=== PATIENT | female | born 1940 | race Caucasian/White ===

== ENCOUNTER → 2016-11-05 | Outpatient (CLI) | payer MEDICARE ==
[~2016-11-05] MED LIST: ALPR1TAB3 PO; ASPI325T4 PO; FLUT27.53; GABA-113 PO; LEVO75TA5 PO; LISI10TA PO; MULT-506 PO; PRLSR20 PO; SIMV10TA2 PO; TRAZ50TA35 PO
--- NOTE | 2016-11-05 15:12 | DIAGNOSTIC IMAGING REPORT ---
LEFT INJ MAJOR JNT SHLDR,HIP,KNEE CLINICAL HISTORY: 76 years-old Female presenting with L HIP PAIN. COMPARISON: None. PROCEDURE: The risks, benefits, and alternatives to the procedure were discussed with the patient. Written informed consent was obtained. The patient was placed supine on the fluoroscopy table, and a left hip injection was performed under fluoroscopic guidance. The area was prepped and draped in the usual sterile fashion. The skin and soft tissues anesthetized with local 1% lidocaine. The left hip joint was accessed utilizing a 22-gauge needle, and approximately 1 cc of Optiray 300 was injected into the joint space under fluoroscopic guidance to confirm intra-articular placement. Subsequently, a mixture of 2 mL of Celestone and 5 mL of 0.5% Marcaine was injected into the joint. The procedure was well tolerated and without immediate complication. The patient was then transferred to MRI for MR arthrography. Fluoroscopy dosage (mGy): Not available. Fluoroscopy time: 12 seconds. Number of fluoroscopic spot images: 0. IMPRESSION: Successful therapeutic injection of the left hip under fluoroscopic guidance. Electronically signed by: Braulio Valera M.D. 11/05/2016 3:10 PM Dictated Date/Time: 11/05/2016 3:08 PM
== END | disposition home or self-care (01) ==
LOC: C.RADBC 13:28
PROVIDERS: ATTEND Orthopaedic Surgery
DX: M16.12 Unilateral primary osteoarthritis, left hip (principal)

== ENCOUNTER 2017-02-28 05:19 | Inpatient (IN) | payer MEDICARE, OTHER ==
[2017-01-20 13:08] VITALS: BMI 33.0
--- NOTE | 2017-01-20 14:03 | PAT Medication Instructions ---
Service Date Jan 20, 2017. Current Home Medication List Alprazolam (Xanax), 1 MG PO TID PRN for prn Aspirin (Aspirin), 650 MG PO HS Calcium/Vitamin D (Os-James 500 Plus D), 1 TAB PO QDL Cholecalciferol (Vitamin D3), 1 TAB PO QDL Fluticasone Furoate (Flonase Sensimist), prn Gabapentin (Neurontin), 300 MG PO BID Gabapentin (Neurontin), 600 MG PO QPM Levothyroxine Sodium (Levothyroxine Sodium), 1 TAB PO QAM Lisinopril (Prinivil), 10 MG PO QAM Multivitamin (Multivitamin), 1 TAB PO QDL Omeprazole (Prilosec), 40 MG PO QAM Simvastatin (Zocor), 10 MG PO QPM Trazodone Hcl (Trazodone), 50 MG PO HS Medication Instructions For Your Scheduled Surgery - Check with surgeon for instructions: Aspirin (Aspirin), 650 MG PO HS - Hold the following medications the morning of surgery: Calcium/Vitamin D (Os-James 500 Plus D), 1 TAB PO QDL Cholecalciferol (Vitamin D3), 1 TAB PO QDL Lisinopril (Prinivil), 10 MG PO QAM Multivitamin (Multivitamin), 1 TAB PO QDL - Take the following medications the morning of surgery with a sip of water: Omeprazole (Prilosec), 40 MG PO QAM Levothyroxine Sodium (Levothyroxine Sodium), 1 TAB PO QAM Gabapentin (Neurontin), 300 MG PO BID Fluticasone Furoate (Flonase Sensimist), prn (if needed) Alprazolam (Xanax), 1 MG PO TID PRN for prn (if needed) - Take the following medications as scheduled the night before surgery: Simvastatin (Zocor), 10 MG PO QPM Trazodone Hcl (Trazodone), 50 MG PO HS Gabapentin (Neurontin), 300 MG PO BID Gabapentin (Neurontin), 600 MG PO QPM Fluticasone Furoate (Flonase Sensimist), prn (if needed) Alprazolam (Xanax), 1 MG PO TID PRN for prn (if needed) If you have any questions please call us at [phone] or [phone] or [phone]
--- NOTE | 2017-01-20 14:51 | DIAGNOSTIC IMAGING REPORT ---
TWO VIEW CHEST CLINICAL HISTORY: Preoperative examination. FINDINGS: PA and lateral chest radiographs are obtained. No prior studies are available for comparison at the time of dictation. The cardiomediastinal silhouette is unremarkable. Nonspecific interstitial thickening is noted. There is no airspace consolidation or pleural effusion. There is no pneumothorax. The skeletal structures are osteopenic. The bony thorax appears intact. Degenerative change is present throughout the thoracic spine. IMPRESSION: No active disease in the chest. Electronically signed by: Abel Philippe M.D. 01/20/2017 2:50 PM Dictated Date/Time: 01/20/2017 2:49 PM
[2017-01-20 15:09] LABS: BASO % 0.7 %; BASO ABS # 0.05 K/uL (0-0.2); COMPLETE YES; EOS % 4.1 %; HEMATOCRIT 38.6 % (37-47); IG% 0.3 %; LYMPH % 33.6 %; LYMPH ABS # 2.44 K/uL (1.2-3.4); MEAN CELL VOLUME 90.6 fL (80-100); MEAN CORPUSCULAR HEMOGLOBIN 30.3 pg (25-34); MEAN CORPUSCULAR HGB CONC 33.4 g/dl (32-36); MEAN PLATELET VOLUME 10.3 fL (7.4-10.4); MONO % 5.8 %; NEUT % 55.5 %; PLATELET COUNT 252 K/uL (130-400); RED BLOOD COUNT 4.26 M/uL (4.2-5.4); WHITE BLOOD COUNT 7.27 K/uL (4.8-10.8)
[2017-01-20 15:12] LABS: URINE APPEARANCE CLEAR (CLEAR); URINE BILIRUBIN NEG (NEG); URINE COLOR YELLOW; URINE NITRITE NEG (NEG); URINE SPECIFIC GRAVITY 1.011 (1.000-1.030); UROBILINOGEN NEG (NEG)
[2017-01-20 15:17] LABS: MANUAL MICROSCOPIC REQUIRED? NO; REVIEW REQ? NO
[2017-01-20 15:18] LABS: INR 0.9 (0.9-1.1); PARTIAL THROMBOPLASTIN RATIO 1.1; PROTHROMBIN TIME (PATIENT) 10.1 SECONDS (9.0-12.0)
[2017-01-20 16:00] LABS: BUN/CREATININE RATIO 17.1 (10-20); CALCIUM 8.9 mg/dl (8.5-10.1); CREATININE 0.8 mg/dl (0.60-1.20); POTASSIUM 4.6 mmol/L (3.5-5.1)
--- NOTE | 2017-02-27 11:12 | HISTORY & PHYSICAL EXAMINATION ---
DATE OF ADMISSION: 02/28/2017 CHIEF COMPLAINT: Primary osteoarthritis of the left hip. HISTORY OF PRESENT ILLNESS: Eloisa is a pleasant 76-year-old female who has been having a 5-year history of left hip pain. It has gotten progressively worse over the last 5 years. Most of her pain is located in the groin. X-rays and clinical examination have been diagnostic for primary osteoarthritis of the left hip. She has gotten to the point she cannot even lie down at night without having pain. She elected to proceed with a left total hip arthroplasty. PAST MEDICAL HISTORY: Significant for hypothyroidism, depression, hyperlipidemia, and hypertension. PAST SURGICAL HISTORY: Significant for cataract surgery and wrist surgery. ALLERGIES: None. MEDICATIONS: Include Xanax, gabapentin, Synthroid, lisinopril, and Protonix. FAMILY HISTORY: She denies. SOCIAL HISTORY: She is . Rarely drinks. ____ pack of tobacco for unknown amount of years. Does little activity and has 4 kids. REVIEW OF SYSTEMS: She complains of left hip pain. All other pertinent review of systems is negative. PHYSICAL EXAMINATION: GENERAL: She is awake, alert and oriented x3. She is in no apparent distress. She is very pleasant. HEENT: Pupils are equal, round and reactive to light. Extraocular motion intact. Oral mucosa is pink and moist. HEART: Regular rate per radial pulse. LUNGS: Francy symmetrically bilaterally with no audible breath sounds. ABDOMEN: Soft, nontender, and nondistended. MUSCULOSKELETAL: On physical examination of her hip, she ambulates independently, but does have an antalgic gait. She has tenderness over the greater trochanteric bursa, but also has reproducible symptoms with forced internal and external rotation of her hips. She has negative straight leg raise. IMAGING DATA: X-rays of the left hip do show advanced osteoarthritis with osteophyte formation and joint space narrowing. IMPRESSION: Primary osteoarthritis of the left hip. PLAN: We will proceed with a left total hip arthroplasty through an anterior approach. Postoperatively, she will be kept in the hospital for postoperative medical management and started on aspirin for DVT prophylaxis.
[2017-02-28] VITALS (9 sets, daily range): BP systolic 95–147; BP diastolic 57–74; PULSE 66–77; TEMP 36.3–36.9; O2SAT 94–100; Ht 157.5 cm; Wt 81.4 kg
[~2017-02-28] VITALS: Ht 157.5 cm; Wt 81.4 kg
[~2017-02-28 05:19] MED LIST changes: +CALC500C70 PO; +CHOL1000 PO
[2017-02-28] MEDS ORDERED: GABAPENTIN 300 MG CAP PO SCH ×3 (06:00→21:00)
[2017-02-28] MEDS ORDERED: ROPIVACAINE 5MG/ML 30 ML 150 MG, BUPIVACAINE 0.5% MPF INJ 30 ML, EpINEphrine HCL INJ 0.... INFIL SCH ×8 (06:00)
[2017-02-28] MEDS ORDERED: LACTATED RINGER'S 1000ML 1,000 ML IV SCH ×2 (06:00)
[2017-02-28] MEDS ORDERED: ACETAMINOPHEN 500 MG TAB PO SCH ×2 (06:00→10:00)
[2017-02-28] MEDS ORDERED: FAMOTIDINE 20 MG TAB PO SCH (06:00)
[2017-02-28] MEDS ORDERED: LACTATED RINGER'S 1000ML 500 ML IV ONE (06:00)
[2017-02-28] MEDS ORDERED: CEFAZOLIN 2000MG IV PUSH 10 ML IV SCH (06:00)
[2017-02-28] MEDS: TRANEXAMIC ACID INJ 1,000 MG in SYRINGE 0 ML IV SCH ×2 (06:30→07:09)
[2017-02-28] MEDS ORDERED: BUPIVACAINE 0.5 % 5 MG/1 ML PF 10ML VIAL ONE (06:30)
[2017-02-28] MEDS ORDERED: LIDOCAINE HCL 2% 2 ML VIAL (20MG/ML) ONE (06:36)
[2017-02-28] MEDS ORDERED: PROPOFOL IV EMULSION 10 MG/ML 20 ML VIAL IV ONE (06:36)
[2017-02-28] MEDS ORDERED: MIDAZOLAM HCL 1 MG/ML 2ML VIAL ONE (06:37)
[2017-02-28] MEDS ORDERED: FENTANYL CITRATE INJ 50 MCG/1 ML 2 ML VIAL ONE (06:37)
[2017-02-28] MEDS ORDERED: BACITRACIN 50000 UNIT VIAL ONE (06:59)
[2017-02-28] MEDS ORDERED: ORTHO JOINT ANESTHETIC ONE (06:59)
[2017-02-28] MEDS ORDERED: ONDANSETRON INJ 2 MG/ML 2 ML VIAL IV PRN ×2 (07:00→10:00)
[2017-02-28] MEDS ORDERED: FENTANYL CITRATE INJ 50 MCG/1 ML 2 ML VIAL IV PRN (07:00)
[2017-02-28] MEDS ORDERED: ATROPINE SULFATE 0.1 MG/ML 5ML SYR IV PRN (07:00)
[2017-02-28] MEDS ORDERED: EpHEDrine SULFATE INJ 50 MG/ML AMP IV PRN (07:00)
--- NOTE | 2017-02-28 07:03 | History & Physical Bridge Note ---
H&P Re-Evaluation Bridge Note: I have examined the patient, reviewed the History & Physical and in the interval since the performance of the History & Physical I have noted the following changes of clinical significance: No changes noted
[2017-02-28] MEDS ORDERED: PHENYLEPHRINE 100MCG/ML 5ML SYR ONE (08:34)
[2017-02-28] MEDS ORDERED: EpHEDrine SULFATE 50MG/5ML SYR ONE (08:34)
[2017-02-28] MEDS ORDERED: SODIUM CHLORIDE 0.9% 1000ML 1,000 ML IV SCH (09:50)
--- NOTE | 2017-02-28 09:50 | [facility] Post Operative Brief Note ---
Immediate Operative Summary Operative Date Feb 28, 2017. Pre-Operative Diagnosis Left Hip Degenerative Joint Disease Post-Operative Diagnosis Same as preop Procedure(s) Performed Left Anterior Total Hip Arthroplasty Uncemented Surgeon Dr. Haynes Irrigator Gravity Flow Surgeon(s) Yovanny Arreaga PA-C Estimated Blood Loss 200 ml Findings as above Specimens A. Left Femoral Head Complication(s) None Disposition Recovery Room / PACU
[2017-02-28] MEDS ORDERED: ACETAMINOPHEN IV 1,000 MG in EMPTY BAG 0 ML IV SCH (10:00)
[2017-02-28] MEDS ORDERED: MoRPHine SULFATE 2 MG/ML CARP IV PRN ×2 (10:00→12:15)
[2017-02-28] MEDS ORDERED: CEFAZOLIN IV 2,000 MG in DEXTROSE 5% 50ML 50 ML IV SCH ×2 (10:00→12:15)
[2017-02-28] MEDS ORDERED: MAGNESIUM HYDROXIDE SUSP 30 ML UDC PO PRN (10:00)
[2017-02-28] MEDS ORDERED: OXYCODONE HCL IR 5 MG TAB (IMMEDIATE RELEASE) PO PRN ×2 (10:00→12:15)
[2017-02-28] MEDS ORDERED: BISACODYL 10 MG SUPP PR PRN (10:00)
[2017-02-28] MEDS ORDERED: KETOROLAC TROMETHAMINE 30 MG/ML VIAL IV. SCH (10:00)
[2017-02-28] MEDS ORDERED: SOD PHOSPHATE/SOD BIPHOSPHATE ENEMA 132 ML BTL PR PRN (10:00)
[2017-02-28] MEDS ORDERED: METOCLOPRAMIDE HCL INJ 5 MG/ML 2 ML VIAL IV PRN (10:00)
--- NOTE | 2017-02-28 10:21 | OPERATIVE REPORT ---
DATE OF OPERATION: 02/28/2017 PREOPERATIVE DIAGNOSIS: Primary osteoarthritis of the left hip. POSTOPERATIVE DIAGNOSIS: Same. PROCEDURE: Left total hip arthroplasty. SURGEON: Dr. Eleuterio Haynes. OCCUPATIONAL THERAPY AIDES TEACHER: Yovanny Arreaga PA-C, whose assistance was necessary for retraction and closure. ANESTHESIA: Spinal. COMPLICATIONS: None. CONDITION: Stable to PACU. IMPLANTS USED: I used a Biomet Taperloc total hip arthroplasty system with a size 7 high offset stem, a size 50 cup with a 36 E1 poly liner and a 36 ceramic head with a -6 neck. INDICATIONS: Eloisa is a very pleasant 76-year-old female who presented to my office with chronic left hip and groin pain. X-rays and clinical examination were diagnostic for primary osteoarthritis of the left hip. After failing conservative treatment, she elected to undergo a left total hip arthroplasty. DESCRIPTION OF PROCEDURE: On 02/28/2017, she arrived at [facility] for the above procedure. She was seen in the preoperative holding area and the operative extremity was identified and signed. She received antibiotics and a spinal anesthetic. She was taken back to the operating room, laid on the table in supine position and given basic sedation. The left leg was then brought out to a Purist leg positioner. The left hip was then prepped and draped in sterile fashion. Time-out was done and the patient's operative extremity was properly identified. An anterior approach was used. Dissection was taken down through the fascia and the tensor muscle was retracted laterally and the rectus was retracted medially. The circumflex vessels were visualized and ligated. The capsule was exposed. The capsule was then incised and tagged for later repair. The femoral neck was then resected and the head was removed. Time was spent doing a circumferential labral release. Sequential reaming of the acetabulum up to a size 49 reamer was done. Version of the acetabulum was checked under fluoroscopy. Once I had good circumferential bleeding bone, a size 50 cup was then impacted into place. Appropriate position was checked under fluoroscopy. A single 30-mm screw was placed and E1 poly liner was snapped into place and the ring lock mechanism was engaged. The proximal femur was then exposed. Sequential broaching up to a size 7 broach was done. A high offset neck with a standard head was used for reduction. I was happy with the size of the implant. I thought that the leg was a little bit long. It was then dislocated. A final size 7 high offset Taperloc stem was then impacted into place. I trialed a -6 implant and I was happy with the leg length. A final 36 ceramic head with a -6 neck was then impacted into place and the hip was then reduced. Final fluoroscopic images showed anatomic reduction. The surrounding soft tissues were then injected with 100 mL of an orthopedic pain control cocktail. The wound was then irrigated with 3 liters of normal saline solution with bacitracin. The capsule was closed with #1 Vicryl suture. Drain was placed. The fascia was then closed with #1 PDS. Skin was closed with a couple of deep sutures, a 2-0 Vicryl suture, a 3-0 V-Loc and karen. A Prevena VAC dressing was placed. She was then taken to the postanesthesia care unit in stable condition. She tolerated the procedure well. I attest to the content of the Intraoperative Record and any orders documented therein. Any exception s are noted below.
--- NOTE | 2017-02-28 10:40 | DIAGNOSTIC IMAGING REPORT ---
SINGLE VIEW PELVIS; SINGLE VIEW LEFT HIP CLINICAL HISTORY: Postoperative examination. Left hip arthroplasty. FINDINGS: An AP portable view of the hips and pelvis with a crosstable lateral portable view of the left hip are obtained. A bipolar left hip arthroplasty is in near-anatomic alignment. A single cortical lag screw transfixes the acetabular cup. No acute fracture is identified. There are expected postoperative changes overlying the left hip including skin clips, subcutaneous gas, a surgical drain, and soft tissue swelling. IMPRESSION: Expected postoperative findings status post left hip arthroplasty. No acute fracture is seen. Electronically signed by: Abel Philippe M.D. 02/28/2017 10:39 AM Dictated Date/Time: 02/28/2017 10:38 AM
[2017-02-28] MEDS ORDERED: CALCIUM 600MG + VIT D 400 IU TAB PO SCH (11:00)
[2017-02-28] MEDS ORDERED: CHOLECALCIFEROL 1000 INTER.UNIT TAB PO SCH (11:00)
--- NOTE | 2017-02-28 11:17 | Anesthesiology Progress Note ---
Anesthesia Post Op Note Date & Time Feb 28, 2017 at 11:17 Vital Signs Pain Intensity: 0 Vital Signs Past 12 Hours Date Time Temp Pulse Resp B/P (MAP) Pulse Ox O2 Delivery O2 Flow Rate FiO2 02/28/17 11:10 63 12 102/47 99 Nasal Cannula 2 02/28/17 11:00 36.3 71 20 106/40 96 Nasal Cannula 2 02/28/17 10:50 68 16 106/52 99 Nasal Cannula 2 02/28/17 10:40 70 17 94/44 97 Nasal Cannula 2 02/28/17 10:30 73 17 88/54 98 Oxymask 10 02/28/17 10:20 72 15 90/53 99 Oxymask 10 02/28/17 10:12 36.4 80 13 94/47 99 Oxymask 10 02/28/17 06:39 36.7 77 18 147/74 98 Room Air Notes Mental Status: alert / awake / arousable, participated in evaluation Pt Amnestic to Procedure: Yes Nausea / Vomiting: adequately controlled Pain: adequately controlled Airway Patency, RR, SpO2: stable & adequate BP & HR: stable & adequate Hydration State: stable & adequate Neuraxial Anesthesia: was administered, sensory block is resolving Anesthetic Complications: no major complications apparent
[2017-02-28] MEDS: SODIUM CHLORIDE 0.9% 1000ML 1,000 ML IV SCH ×2 (12:52→23:24)
[2017-02-28] MEDS: ALPRAZOLAM 0.5 MG TAB PO PRN ×2 (13:36→21:59)
[2017-02-28] MEDS: KETOROLAC TROMETHAMINE 30 MG/ML VIAL IV. SCH ×3 (13:37→23:25)
[2017-02-28] MEDS: CALCIUM 600MG + VIT D 400 IU TAB PO SCH (13:44)
[2017-02-28] MEDS: CHOLECALCIFEROL 1000 INTER.UNIT TAB PO SCH (13:44)
[2017-02-28] MEDS: ACETAMINOPHEN IV 1,000 MG in EMPTY BAG 0 ML IV SCH ×2 (13:47→21:59)
--- NOTE | 2017-02-28 13:48 | DIAGNOSTIC IMAGING REPORT ---
L HIP UNILATERAL 1 VIEW CLINICAL HISTORY: LEFT ANTERIOR HIP COMPARISON: None. DISCUSSION: Image intensifier was used for an anterior approach left hip total arthroplasty. Expected soft tissue postoperative change IMPRESSION: Image intensifier utilized for an anterior approach left hip total arthroplasty The above report was generated using voice recognition software. It may contain grammatical, syntax or spelling errors. Electronically signed by: Yvan Alvarez M.D. 02/28/2017 1:47 PM Dictated Date/Time: 02/28/2017 1:46 PM
[2017-02-28] MEDS: CEFAZOLIN IV 2,000 MG in SYRINGE 0 ML IV SCH ×2 (15:30→23:24)
--- NOTE | 2017-02-28 16:48 | Discharge Instructions ---
Discharge Instructions Date of Service Feb 28, 2017. Admission Reason for Admission: Left Hip Degenerative Joint Disease Discharge Discharge Diagnosis / Problem: Left Total Hip Discharge Goals Goal(s): Decrease discomfort, Improve function Activity Recommendations Activity Limitations: as noted below . Instructions / Follow-Up Instructions / Follow-Up Activity and Therapy Recommendations: * If you are using [facility] then Physical Therapy will be provided until they feel you are ready to start Outpatient Physical Therapy. If you are not using a Home Health agency then Outpatient Physical Therapy should start about 3-5 days from your day of surgery. Therapy will last about 3-6 weeks * You were shown a series of exercises in the hospital. Do these exercises three times each day including the exercises you were shown in physical therapy. * Get up and walk several times each day.~ For the first four weeks, try not to stand or walk for more than one hour at a time. If you do stand or walk for more than one hour, you will not hurt anything, but your leg will likely swell.~ ~ * As you feel comfortable, you may change from the walker or crutches to a cane and~then to independent walking. Medications: * Narcotic You will likely be sent home from the hospital with a prescription for the narcotic pain medication that worked best throughout your stay. * Aspirin Most patients will be required to take Aspirin 325mg twice a day for 6 weeks after surgery. This is obtained [id number] and a prescription is not necessary. * Other medications may be prescribed for specific circumstances. If you have any questions, please call the office at . * Resume previous home medications unless otherwise instructed TEDs/Elastic Stockings: The white elastic stockings help limit swelling and prevent blood clots from forming in your legs. The more you wear them, the more they work. Wear them for six weeks. Dressing Care: Take the VAC dressing off if it is still on at 10 days (hopefully it will last 7 -10 days). You may shower after the VAC dressing is off. Let soapy water run over the karen and pat it dry. Things To Watch For: * Drainage from the incision site that occurs more than one week after your surgery. * Increased redness at the incision site. * Fever above 102 degrees Fahrenheit. * Unusual chest pain or shortness of breath. * Call [facility] at with any of the above problems Follow-Up Visit: Follow-up with Dr. Haynes 2-3 weeks after your day of surgery. An appointment was probably scheduled when you signed-up for surgery in the office. If you have any questions call Office Instructions: More detailed instructions as well as Frequently Asked Questions were provided in a folder by our office when you signed-up for surgery. Please review these instructions when you get home. If you have any further questions or concerns, please feel free to call the office at [phone] Current Hospital Diet Patient's current hospital diet: Regular Diet Discharge Diet Recommended Diet: Regular Diet Procedures Procedures Performed: Left Anterior Total Hip Arthroplasty Uncemented Pending Studies Studies pending at discharge: no Medical Emergencies . Who to Call and When: Medical Emergencies: If at any time you feel your situation is an emergency, please call 911 immediately. . Non-Emergent Contact Non-Emergency issues call your: Surgeon Call Non-Emergent contact if: wound has increased drainage, wound has increased redness . "Provider Documentation" section prepared by Eleuterio Haynes. . VTE Core Measure Inpt VTE Proph given/why not?: Other Anticoagulation (Aspirin 325 twice a day for 6 weeks)
[2017-02-28] MEDS: SIMVASTATIN 10 MG TAB PO SCH (20:36)
[2017-02-28] MEDS: DOCUSATE SODIUM 100 MG CAP PO SCH (20:36)
[2017-02-28] MEDS: GABAPENTIN 300 MG CAP PO SCH ×2 (20:42→20:44)
[2017-02-28] MEDS: ASPIRIN 325 MG ECTAB PO SCH (20:42)
[2017-02-28] MEDS ORDERED: SENNA 8.6 MG TAB PO SCH (21:00)
[2017-02-28] MEDS ORDERED: ASPIRIN 325 MG ECTAB PO SCH (21:00)
[2017-02-28] MEDS ORDERED: SIMVASTATIN 10 MG TAB PO SCH (21:00)
[2017-02-28] MEDS ORDERED: TRAZODONE HCL 50 MG TAB PO SCH (21:00)
[2017-02-28] MEDS ORDERED: DOCUSATE SODIUM 100 MG CAP PO SCH (21:00)
[2017-02-28] MEDS: TRAZODONE HCL 50 MG TAB PO SCH (21:16)
[2017-02-28] MEDS: SENNA 8.6 MG TAB PO SCH (21:16)
[2017-02-28] MEDS ORDERED: NURSING VERBAL MED ORDER ONE (22:30)
[2017-03-01 03:05] VITALS: BP 129/70; PULSE 80; TEMP 36.9; O2SAT 94
[2017-03-01] MEDS: ACETAMINOPHEN IV 1,000 MG in EMPTY BAG 0 ML IV SCH (06:05)
[2017-03-01] MEDS: LEVOTHYROXINE 75 MCG TAB PO SCH (06:05)
[2017-03-01 06:06] LABS: BASO % 0.1 %; BASO ABS # 0.01 K/uL (0-0.2); COMPLETE YES; EOS % 0.1 %; IG% 0.3 %; LYMPH % 12.2 %; LYMPH ABS # 1.64 K/uL (1.2-3.4); MEAN CELL VOLUME 90.4 fL (80-100); MEAN CORPUSCULAR HEMOGLOBIN 29.4 pg (25-34); MEAN CORPUSCULAR HGB CONC 32.6 g/dl (32-36); MEAN PLATELET VOLUME 10.1 fL (7.4-10.4); MONO % 6.3 %; PLATELET COUNT 186 K/uL (130-400); RED BLOOD COUNT 3.43 M/uL (4.2-5.4); WHITE BLOOD COUNT 13.43 K/uL (4.8-10.8)
[2017-03-01] MEDS: KETOROLAC TROMETHAMINE 30 MG/ML VIAL IV. SCH ×4 (06:08→19:48)
[2017-03-01 06:39] LABS: CALCIUM 8.2 mg/dl (8.5-10.1); CREATININE 0.78 mg/dl (0.60-1.20); POTASSIUM 4.5 mmol/L (3.5-5.1)
--- NOTE | 2017-03-01 07:08 | PROGRESS NOTE ---
DATE: 03/01/2017 CHIEF COMPLAINT: Status post left total hip arthroplasty postop day #1. PROGRESS: Eloisa was seen and examined at bedside today. Overall, she is doing fairly well. She has been up to use the bathroom. She is concerned because she cannot do a straight leg raise. She was able to get some sleep last night, has no other complaints. PHYSICAL EXAMINATION: LEFT HIP: The Prevena VAC dressing is to suction and the drain is to suction. She has active dorsiflexion and plantarflexion of her left ankle. She has full sensation of her quad. I am able to get her to contract her quad but not do a straight leg raise. LABORATORY DATA: She has an H&H today of 10.1 and 30.0. Her glucose is 107. Her vital signs are all stable on room air and she is voiding on her own. Her Hemovac put out 220 mL. X-rays postoperatively of the left hip show the prosthesis to be in anatomic alignment without any evidence of fracture, dislocation or loosening. IMPRESSION: Status post left total hip arthroplasty postop day #1. PLAN: At this point, she is doing well. She is on aspirin 325 mg twice a day for DVT prophylaxis. She will be seen by physical therapy today. I told her sometimes it takes couple of weeks to get the straight leg raised back. Tomorrow morning, the nursing staff can pull the drain and will likely discharge her to home.
[2017-03-01 07:50] VITALS: BP 129/70; PULSE 75; TEMP 36.8; O2SAT 95
[2017-03-01] MEDS: CEFAZOLIN IV 2,000 MG in SYRINGE 0 ML IV SCH (07:54)
[2017-03-01] MEDS: DOCUSATE SODIUM 100 MG CAP PO SCH ×2 (08:58→21:00)
[2017-03-01] MEDS: PANTOprazole SOD 40 MG TAB PO SCH (08:58)
[2017-03-01] MEDS: ASPIRIN 325 MG ECTAB PO SCH ×2 (08:58→21:21)
[2017-03-01] MEDS: GABAPENTIN 300 MG CAP PO SCH ×2 (08:59→21:22)
[2017-03-01] MEDS: MULTIVITAMIN TAB PO SCH (08:59)
[2017-03-01] MEDS ORDERED: PANTOprazole SOD 40 MG TAB PO SCH (09:00)
[2017-03-01] MEDS ORDERED: LEVOTHYROXINE 75 MCG TAB PO SCH (09:00)
[2017-03-01] MEDS ORDERED: LISINOPRIL 10 MG TAB PO SCH (09:00)
[2017-03-01] MEDS ORDERED: MULTIVITAMIN TAB PO SCH (09:00)
[2017-03-01] MEDS: LISINOPRIL 10 MG TAB PO SCH (09:00)
[2017-03-01] MEDS: CHOLECALCIFEROL 1000 INTER.UNIT TAB PO SCH (12:04)
[2017-03-01] MEDS: CALCIUM 600MG + VIT D 400 IU TAB PO SCH (12:04)
[2017-03-01 12:18] VITALS: BP 145/76; PULSE 73; TEMP 36.4; O2SAT 98
[2017-03-01] MEDS: ACETAMINOPHEN 500 MG TAB PO SCH ×2 (14:13→21:23)
[2017-03-01] MEDS: ALPRAZOLAM 0.5 MG TAB PO PRN ×3 (14:14→21:28)
[2017-03-01 15:50] VITALS: BP 107/53; PULSE 72; TEMP 36.7; O2SAT 97
[2017-03-01] MEDS ORDERED: NURSING DECISION MEDICATION ORDER SCH (20:00)
[2017-03-01] MEDS: SENNA 8.6 MG TAB PO SCH (21:00)
[2017-03-01] MEDS: TRAZODONE HCL 50 MG TAB PO SCH (21:21)
[2017-03-01] MEDS: SIMVASTATIN 10 MG TAB PO SCH (21:22)
[2017-03-01 22:55] VITALS: BP 110/55; PULSE 72; TEMP 36.7; O2SAT 94
[2017-03-02] MEDS: KETOROLAC TROMETHAMINE 30 MG/ML VIAL IV. SCH ×2 (02:07→07:52)
[2017-03-02] MEDS: LEVOTHYROXINE 75 MCG TAB PO SCH (05:33)
[2017-03-02] MEDS: ACETAMINOPHEN 500 MG TAB PO SCH (05:34)
[2017-03-02 07:49] VITALS: BP 146/68; PULSE 72; TEMP 36.4; O2SAT 96
[2017-03-02] MEDS: ALPRAZOLAM 0.5 MG TAB PO PRN (07:53)
[2017-03-02] MEDS: MULTIVITAMIN TAB PO SCH (08:52)
[2017-03-02] MEDS: PANTOprazole SOD 40 MG TAB PO SCH (08:52)
[2017-03-02] MEDS: DOCUSATE SODIUM 100 MG CAP PO SCH (08:53)
[2017-03-02] MEDS: ASPIRIN 325 MG ECTAB PO SCH (08:53)
[2017-03-02] MEDS: LISINOPRIL 10 MG TAB PO SCH (08:54)
[2017-03-02] MEDS ORDERED: GABAPENTIN 300 MG CAP PO SCH (09:00)
[2017-03-02] MEDS ORDERED: ULT50X PO (09:21)
[2017-03-02] MEDS ORDERED: ASPEC325 PO (09:21)
--- NOTE | 2017-03-02 09:37 | PROGRESS NOTE ---
DATE: 03/02/2017 CHIEF COMPLAINT: Status post left total hip arthroplasty postop day #2. PROGRESS: Eloisa was seen and examined at bedside today. Overall, she is doing fairly well. She has some soreness in her left hip. She also has some numbness on the lateral aspect. She was up ambulating in the hallways yesterday with physical therapy. Her pain is controlled. She has no other complaints. PHYSICAL EXAMINATION: LEFT HIP: She does have some numbness on the lateral aspect of her thigh and on the anterior aspect. She has full active extension of her left leg and good strength in her quads. She is able to flex her hip, but it is sore and weak. She has active dorsiflexion and plantarflexion of her left ankle. The Prevena VAC dressing is to suction. IMPRESSION: Status post left total hip arthroplasty postop day #2. PLAN: At this point, she is doing fairly well. We will wait for the numbness to subside some. She will have the Prevena VAC dressing on for 7-10 days, we discussed that. Will continue aspirin for DVT prophylaxis and she can be discharged to home later this morning.
[2017-03-02 09:42] VITALS: BP 146/68; PULSE 72; TEMP 36.4; O2SAT 96
--- NOTE | 2017-03-02 09:45 | DISCHARGE SUMMARY ---
DISCHARGE DIAGNOSIS: Primary osteoarthritis of the left hip. PROCEDURE: Left total hip arthroplasty on 02/28/[address] Eleuterio Haynes. DISCHARGE INSTRUCTIONS: 1. Aspirin 325 mg twice a day for 6 weeks. 2. Tramadol 50 mg every 6 hours as needed for pain. 3. Xanax 1 mg 3 times a day as needed. 4. Flonase sprays as needed. 5. Neurontin 300 mg twice a day. 6. Neurontin 600 mg at night. 7. Synthroid 75 mcg in the morning. 8. Prinivil 10 mg daily. 9. Prilosec 40 mg daily. 10. Zocor 10 mg daily. 11. Trazodone 50 mg at night. 12. Continue all other vitamin supplementations. 13. VERNON hose stockings for 6 weeks. 14. Follow up with Dr. Haynes in 2 weeks. 15. Leave Prevena VAC dressing in place for 7-10 days. 16. Call the office of Dr. Haynes with any questions or concerns. HOSPITAL COURSE: Eloisa is a pleasant 76-year-old female who presented to my office with chronic left hip and groin pain. X-rays and clinical examination were diagnostic for primary osteoarthritis of the left hip. After failing conservative treatment, she elected to undergo a left total hip arthroplasty. On 02/28/2017, she arrived at [facility] and underwent a left hip replacement without complications. She had a spinal anesthetic. Postoperatively, Prevena VAC dressing was placed prophylactically and she was started on aspirin 325 mg twice a day and discharged to general orthopedic floor. Her hospital course was uneventful. On postop day #1, her H&H was stable at 10.1 and 31.0. She was able to ambulate well with physical therapy. She had some numbness in the lateral aspect of her leg. On postop day #2, she continued to do fairly well. She had some soreness in the hip, but she was ambulating well. The Prevena VAC dressing was still to suction. The nursing staff had pulled the drain and she was subsequently discharged to home with oral pain medications and the above instructions.
== END 2017-03-02 11:09 | disposition home health service (06) | DRG 470 ==
LOC: C.ACU 05:19 → C.3E 06:30 → ENRESERV 10:52 → C.ACU 12:09 → CMPBEDREQ 12:10 → UNDOADMIN 12:27 → C.3E 12:27
PROVIDERS: ADMIT Orthopaedic Surgery; ATTEND Orthopaedic Surgery
PROC: 0SRB04A Replacement of Left Hip Joint with Ceramic on Polyethylene Synthetic Substitute, Uncemented, Open Approach (ICD-10-PCS; principal; 2017-02-28 07:50)
DX: M16.12 Unilateral primary osteoarthritis, left hip (principal); E03.9 Hypothyroidism, unspecified; F32.9 Major depressive disorder, single episode, unspecified; E78.5 Hyperlipidemia, unspecified; I10 Essential (primary) hypertension; Z79.82 Long term (current) use of aspirin; Z79.899 Other long term (current) drug therapy